=== PATIENT | male | born 2000 | race African-American/Black ===

== ENCOUNTER 2021-01-05 08:14 | Emergency (ER) | payer OTHER, SELFPAY ==
--- NOTE | ~2021-01-05 | XR_ITS ---
EXAMINATION: XR KNEE, LEFT CLINICAL INFORMATION: Trauma, pain COMPARISON: None TECHNIQUE: Four views of the left knee. FINDINGS: There is moderate suprapatellar effusion. There is no visible fracture or dislocation or destructive process. Bony mineralization is normal. There are no erosive changes or chondrocalcinosis. Hoffa's fat pad appears normal. XR/XR knee LT 3V IMPRESSION: Moderate suprapatellar effusion. No visible fracture or dislocation.
[2021-01-05 08:19] VITALS: BP 136/77; PULSE 82; RESP 16; TEMP 36.8; O2SAT 97; BMI 27.1
--- NOTE | 2021-01-05 09:01 | ED.LOWEXIN ---
HPI - Extremity Injury (Lower) General Chief Complaint: Extremity Injury, Lower Stated Complaint: L LEG INJ Time Seen by Provider: 01/05/21 09:01 Source: patient Mode of arrival: ambulatory Limitations: no limitations History of Present Illness HPI Narrative: 20 y/o male with no significant medical history presents to the ER with left knee pain after he injured it while playing basketball yesterday. He reports planting on his left foot and his knee went outward and he heard a pop. He had immediate pain and was unable to walk. He reports swelling almost instantly. After some rest and ice he was able to walk but reports continued pain, especially with bending. He also injured the same knee 2 weeks ago playing basketball and heard a pop at that time too but it was not as severe as this time. He denies any other injury. He has some pain with ambulation but is able to walk. complaint: knee injury Onset (ago): day(s) (1) Injury: Left: knee Type of Injury: eversion Place: street/outdoors Severity: moderate Severity scale (1-10): 5 Relieving factors: cold therapy, immobilization and rest Exacerbating factors: weight bearing, movement and palpation Context: jumping Associated symptoms: snap/pop sensation, swelling and able to partially bear weight Other symptoms: none Treatments prior to arrival: cold therapy Related Data Previous Rx's Medication Instructions Recorded ibuprofen 600 mg PO Q8H PRN #20 tab 01/05/21 Allergies Allergy/AdvReac Type Severity Reaction Status Date / Time No Known Allergies Allergy Verified 01/05/21 08:18 Review of Systems Review of Systems: Constitutional: No Fever, No Chills Gastrointestinal: No Nausea, No Vomiting Musculoskeletal: + joint pain, No Myalgias Skin: No Skin Lesions, No rash Neuro: No Weakness, No Numbness Heme/Lymph: No Bruising PMFSH Past Medical History Medical History (Updated 01/05/21 @ 09:20 by IRMA Yee) No known health problems Social History Social History Advance Directives: Yes Advance Directives Information Provided: Yes Advance Directives on File: No Physical Exam Vital Signs: Vital Signs: Last Vital Signs Temp 98.2 F 01/05/21 08:19 Pulse 82 01/05/21 08:19 Resp 16 01/05/21 08:19 BP 136/77 07/09/21 08:19 Pulse Ox 97 01/05/21 08:19 Body Mass Index 27.1 Appearance: Alert. Oriented X3. No acute distress. HEENT: normal inspection CVS: Normal heart rate and rhythm. Pulses normal. Respiratory: No respiratory distress. Skin: Skin warm and dry. Normal skin color. Normal skin turgor. No rashes. Extremities: left knee with moderate swelling, pain on palpation of the medial joint line, unable to bend past 30 degrees due to pain. unable to assess joint laxity. normal palpation of patella and tibial plateau Neuro: Oriented X 3. No motor deficit. No sensory deficit. Course Course Course Narrative: 20 y/o male presenting with left knee pain and swelling after a basketball injury yesterday. Exam is limited due to pain and swelling. XR showing moderate effusion. No redness or warmth to suspect injection. Concern for possible ligamentous injury. Will place in [place] for compression, provide crutches, NSAID and ortho referral. Patient agrees with plan and is stable for d/c home with outpatient follow up. Critical Care Time Critical Care Time Critical Care Time: No Discharge Plan Discharge Clinical Impression: Effusion of knee Qualifiers: Laterality: left Qualified Code(s): M25.462 - Effusion, left knee Knee sprain Qualifiers: Encounter type: initial encounter Involved ligament of knee: unspecified ligament Laterality: left Qualified Code(s): S83.92XA - Sprain of unspecified site of left knee, initial encounter Patient Disposition: Home, Self-Care Instructions: Knee Sprain (ED), Swollen Knee Joint (ED) Additional Instructions: Your x-ray today showed a moderate effusion (or fluid) in your left knee. Recommend rest, icing several times per day and elevation of your leg when possible. You may have injured one of the ligaments in your knee, recommend following up with system configuration specialist for further evaluation. Take the prescribed anti-inflammatory medication as needed for pain and swelling. If you develop new or worsening symptoms call 911 or come back to the ER for further evaluation. Prescriptions: New ibuprofen 600 mg tablet 600 mg PO Q8H PRN (Reason: pain) Qty: 20 RF: 0 Referrals: David Wong MD [Physician] - 2 days (left knee effusion, concern for ACL injury) Interventions: ED Discharge Assessment Last Done: 01/05/21 09:35 Discharge Date/Time: 01/05/21 09:36
== END 2021-01-05 09:36 | disposition home or self-care (01) ==
PROVIDERS: Emergency Provider Emergency Medicine
DX: S83.92XA Sprain of unspecified site of left knee, initial encounter (principal); M25.462 Effusion, left knee; X50.1XXA Overexertion from prolonged static or awkward postures, initial encounter; Y93.67 Activity, basketball; Y92.9 Unspecified place or not applicable; Y99.9 Unspecified external cause status
CPT/HCPCS: 73562; 99283

== ENCOUNTER → 2021-01-12 07:48 | Outpatient (BNVA) | payer MEDICAID, SELFPAY | PROVIDERS: Visit Provider Physician Assistant | DX: S83.92XA Sprain of unspecified site of left knee, initial encounter (principal) | CPT/HCPCS: 99202 ==

== ENCOUNTER → 2021-02-09 09:26 | Outpatient (BNVA) | payer MEDICAID, SELFPAY | PROVIDERS: Visit Provider Physician Assistant | DX: S83.92XD Sprain of unspecified site of left knee, subsequent encounter (principal) | CPT/HCPCS: 99212 ==